=== PATIENT | male | born 1955 | race Two or more races ===

== ENCOUNTER → 2020-06-04 | Outpatient (CLI) | payer MEDICARE, OTHER | END | disposition home or self-care (01) | LOC: CVU 09:51 | PROVIDERS: ATTEND Internal Medicine Cardiovascular Disease | DX: I06.8 Other rheumatic aortic valve diseases (principal); I65.23 Occlusion and stenosis of bilateral carotid arteries; I45.19 Other right bundle-branch block; R55 Syncope and collapse; R01.1 Cardiac murmur, unspecified | CPT/HCPCS: 93306; 93356; 93880 ==